=== PATIENT | female | born 1995 | race Caucasian/White ===

== ENCOUNTER 2020-05-13 17:29 | Emergency (ER) | payer SELFPAY ==
--- NOTE | 2020-05-13 18:06 | EDM.PDOC ---
ED HPI GENERAL MEDICAL PROBLEM - General Stated Complaint: LEFT HAND LACERATION Time Seen by Provider: 05/13/20 17:29 Source of Information: Reports: Patient History Limitations: Reports: No Limitations - History of Present Illness INITIAL COMMENTS - FREE TEXT/NARRATIVE: Pt. sustained any injury to the palm of her L hand while using a mandolin slicer at work. Pt. states that she is not sure if her tetanus is up to date. She states that she moved to [place] earlier this year so we were unable to fine her immunization records from her previous state. Denies injury elsewhere. Onset: Today Location: Reports: Upper Extremity, Left Quality: Reports: Sharp Severity: Mild - Related Data Allergies Allergy/AdvReac Type Severity Reaction Status Date / Time No Known Allergies Allergy Verified 05/13/20 17:53 ED ROS GENERAL - Review of Systems Review Of Systems: Comprehensive ROS is negative, except as noted in HPI. ED EXAM, GENERAL - Physical Exam Exam: See Below Exam Limited By: No Limitations General Appearance: Alert, WD/WN, No Apparent Distress Extremities: Other (2.5 cm in diameter round deep complete tissue avulsion to palm of L hand. No trauma to the underlying structures. CMS intact. The margins were not able to be approximated for closure and will have to heal via secondary intention.) Course - Orders/Labs/Meds Orders: Active Orders 24 hr Category Date Time Status Vaccines to be Administered [RC] PER UNIT ROUTINE Care 05/13/20 17:53 Active Meds: Medications Discontinued Medications Generic Name Dose Route Start Last Admin Trade Name Freq PRN Reason Stop Dose Admin Diphtheria/Tetanus/Acell Pertussis 0.5 ml 05/13/20 17:53 Adacel IM 05/13/20 17:54 .ONCE ONE Departure - Departure Time of Disposition: 18:13 Disposition: Home, Self-Care 01 Clinical Impression: Avulsion of skin of hand - Discharge Information Instructions: Deep Skin Avulsion Referrals: PCP,None [Primary Care Provider] - Additional Instructions: Keep dressing on until Friday AM. Then you can just use regular bandaids to protect the injury. There is a large area of missing tissue and no suturing is necessary to this injury. Return if redness, swelling, or discharge from the area. Ibuprofen as needed for discomfort. - Problem List Review Problem List Initiated/Reviewed/Updated: Yes - My Orders Last 24 Hours: My Active Orders 05/13/20 17:53 Vaccines to be Administered [RC] PER UNIT ROUTINE - Assessment/Plan Last 24 Hours: My Active Orders 05/13/20 17:53 Vaccines to be Administered [RC] PER UNIT ROUTINE Plan: Keep dressing on until Friday AM. Then you can just use regular bandaids to protect the injury. There is a large area of missing tissue and no suturing is necessary to this injury. Return if redness, swelling, or discharge from the area. Ibuprofen as needed for discomfort.
[2020-05-13] MEDS: Diphtheria,Pertussis(Acell),Tetanus Vaccine 0.5 ML Syringe IM ONE (18:10)
== END 2020-05-13 18:27 | disposition home or self-care (01) ==
LOC: VM.ED 17:29
DX: S61.402A Unspecified open wound of left hand, initial encounter (principal); Z23 Encounter for immunization; W26.8XXA Contact with other sharp object(s), not elsewhere classified, initial encounter; Y99.0 Civilian activity done for income or pay
CPT/HCPCS: 90471; 90715; 99283